=== PATIENT | female | born 1955 | race Asian ===

== ENCOUNTER 2022-11-02 18:54 | Emergency (ER) | payer OTHER ==
[~2022-11-02] VITALS: Ht 167.6 cm; Wt 57.6 kg
[2022-11-02 18:54] VITALS: BP 124/74; TEMP 98
[2022-11-02 19:30] LABS: PLATELET COUNT 324 K/uL (152-353)
[2022-11-02 20:06] LABS: POTASSIUM 2.2 mmol/L (3.6-5.2)
[2022-11-03] MEDS ORDERED: AMITRIPTYLIN100 MG PO (07:44)
[2022-11-03] MEDS ORDERED: FLUTICASON50 MCG/AC1 NAS (07:45)
[2022-11-03] MEDS ORDERED: FURO40TA93 PO (07:46)
[2022-11-03] MEDS ORDERED: HALO10TA5 PO (07:47)
[2022-11-03] MEDS ORDERED: MEGESTROL400 MG/10 PO (07:48)
[2022-11-03] MEDS ORDERED: PANTOPRAZOLE 40MG TA PO (07:50)
[2022-11-03] MEDS ORDERED: RENA-VITE PO (07:51)
[2022-11-03] MEDS ORDERED: TRAZODONE HYDR150 MG PO (07:51)
[2022-11-03] MEDS ORDERED: ERGOCALCIF50000 UNIT PO (07:55)
[2022-11-03] MEDS ORDERED: HALO5TAB10 PO (07:56)
[2022-11-03] MEDS ORDERED: METO-837 PO (07:57)
[2022-11-03] MEDS ORDERED: ANTACID500 MG PO (07:58)
[2022-11-03] MEDS ORDERED: SODI650T PO (07:59)
[2022-11-03] MEDS ORDERED: ARTIFICIA2 OPTH (08:01)
[2022-11-03] MEDS ORDERED: TIZANIDINE HYDRO2 M1 PO (08:02)
[2022-11-03] MEDS ORDERED: ROBITUSSIN PEAK COL3 PO (08:02)
[2022-11-03] MEDS ORDERED: TYLENOL325 MG PO (08:05)
[2022-11-03] MEDS ORDERED: MILK OF MA400 MG/5 M PO (08:08)
[2022-11-03] MEDS ORDERED: GUAIFENESIN PO (08:09)
[2022-11-03] MEDS ORDERED: LOPERAMIDE2 MG PO (08:11)
== END 2022-11-02 22:22 | disposition still patient (30) ==
LOC: ED 18:54
PROVIDERS: Internal Medicine
DX: R45.1 Restlessness and agitation (principal); Z11.52 Encounter for screening for COVID-19; Z04.6 Encounter for general psychiatric examination, requested by authority
CPT/HCPCS: 36415; 80053; 85027; 87635; 93005; 99283; U0003